=== PATIENT | female | born 1980 | race Caucasian/White ===

== ENCOUNTER 2019-04-22 11:22 | Emergency (ER) | payer OTHER, SELFPAY ==
[2019-04-22 11:23] VITALS: BP 116/70; PULSE 72; RESP 16; TEMP 36.2; O2SAT 100
--- NOTE | 2019-04-22 11:25 | ED.GENADULT ---
HPI - General Adult General Chief complaint: Skin/Abscess/Foreign Body Stated complaint: RASH Time Seen by Provider: 04/22/19 11:25 Source: patient Mode of arrival: ambulatory Limitations: no limitations History of Present Illness HPI narrative: 38-year-old female patient presents to the [facility] with complaints of a rash to the right upper arm for the past week. Patient states it is a burning pain. Denies any itching. Denies current coming into contact with anything that she is allergic to. Patient states that the pain does shoot down the arm at times. Patient denies any injury to the arm that she is aware of. Patient denies any fevers, sore throat, coughing, chest pain, shortness of breath, abdominal pain, nausea, vomiting or diarrhea. Patient denies or breast-feeding at this time. Related Data Allergies Allergy/AdvReac Type Severity Reaction Status Date / Time oxycodone Allergy Mild NAUSEA Verified 07/19/16 12:28 Review of Systems Review of Systems: Narrative: CONSTITUTIONAL: Denies fever, chills, or sweats. EYES: Denies visual changes, redness, or discharge. ENT: Denies rhinorrhea, congestion, sore throat, or otalgia. CARDIOVASCULAR: Denies chest pain, palpitations, or edema. RESPIRATORY: Denies cough or dyspnea. GASTROINTESTINAL: Denies abdominal pain, nausea, vomiting, or diarrhea. GENITOURINARY: Denies dysuria or hematuria. SKIN: Positive rash with burning pain to right upper arm MUSCULOSKELETAL: Denies back pain, joint pain, or myalgia. NEUROLOGIC: Denies headache, numbness, or weakness. PSYCHIATRIC: Denies anxiety or depression. [facility] Past Medical History Medical History (Updated 04/22/19 @ 11:43 by BEKAH Quick) Anemia Heart murmur HIV (human immunodeficiency virus infection) 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 First Family History Family History (Updated 04/22/19 @ 11:28 by BEKAH Quick) Grandparent Acute myocardial infarction Heart disease Diabetes mellitus Hypertension Comments At the time of my signature I agree with nursing past medical history, surgical, social, and family history. There is no relevant family history pertinent to the presenting complaint. Exam Narrative: Exam Narrative: GENERAL: Well-appearing, well-nourished, and in no acute distress. HEAD: Normocephalic, atraumatic. EYES: PERRLA and EOMI. ENT: Nares clear, no rhinorrhea or epistaxis. Mucous membranes moist. NECK: Supple. No lymphadenopathy CHEST: Clear to auscultation. No respiratory distress. HEART: Regular rate and rhythm. No murmur heard. Normal peripheral pulses. ABDOMEN: Soft, nontender, nondistended, normal active bowel sounds. EXTREMITIES: Normal range of motion. No edema. SKIN: Patient does have a clustered rash noted to the right upper extremity near the axilla. There is no open wounds drainage or obvious blisters. It does appear to be healing. NEURO: No focal deficits. Alert and oriented x3. Course Vital Signs Vital signs: Vital Signs Temperature 36.2 C L 04/22/19 11:23 Pulse Rate 72 04/22/19 11:23 Respiratory Rate 16 04/22/19 11:23 Blood Pressure 116/70 04/22/19 11:23 Pulse Oximetry 100 04/22/19 11:23 Temperature 36.2 C L 04/22/19 11:23 Pulse Rate 72 04/22/19 11:23 Respiratory Rate 16 04/22/19 11:23 Blood Pressure 116/70 04/22/19 11:23 Pulse Oximetry 100 04/22/19 11:23 Vital signs reviewed. Medical Decision Making Differential Diagnosis Differential Diagnosis: Differential diagnosis: Contact dermatitis, poison alla, poison sumac, psoriasis, eczema, allergic reaction, drug reaction, scabies, tinea syphilis, lung disease, viral exanthema, pityriasis, erythema multiforme. Discussed with patient this is most likely shingles. Discussed with patient that since she is a week out I do not see any need for antivirals because it does appear to be healing and should not take much longer to completely go away.
--- NOTE | 2021-02-28 10:43 | WPDAMENDMENT ---
Record Amendment Report Amendment Patient medical history was automatically put in by system. However, patient does not have history of HIV The above addendum was made to the patient's record by Karyn Gil APN on 02/25/21 at 0842. Original addendum is on the Express Care Visit Note on account [id number].
== END 2019-04-22 11:49 | disposition home or self-care (01) ==
PROVIDERS: Emergency Provider Nurse Practitioner Family; PCP Internal Medicine
DX: B02.9 Zoster without complications (principal); R01.1 Cardiac murmur, unspecified; Z21 Asymptomatic human immunodeficiency virus [HIV] infection status
CPT/HCPCS: 99213; G0463

== ENCOUNTER 2020-05-20 00:18 | Inpatient (IN) | payer OTHER, SELFPAY ==
[2020-05-20] VITALS (135 sets, daily range): BP systolic 70–166; BP diastolic 39–138; PULSE 51–265; TEMP 36.1–37.4; O2SAT 93–100; BMI 26.2
--- NOTE | 2020-05-20 00:18 | LDADM ---
This patient, Lula Roldan, was admitted to Labor/Delivery/Recovery 107 on 05/20/20 at 00:18. Plans for labor, pain management and were discussed with patient. Patient/family oriented to hospital policies and general routines including ID bracelet, bed and alarms, visiting hours, pain management, procedures, bathroom and other care routines, personal items, smoking policy, room service/diet and guest tray routines, infant security routines, and visiting hours. Patient/Family are encouraged to report perceived risks to care and to ask questions if they do not understand what they are told or what they should do. See OBIX for further documentation.
[2020-05-20 00:55] LABS: Basophils Percent Auto 0.4 % (0.2-1.2); Eosinophils Percent Auto 0.4 % (0-4.4); Hematocrit 39.8 % (37.0-47.0); Hemoglobin 12.8 g/dL (12.0-15.0); Immature Granulocyte Absolute 0.03 K/mm3 (0.00-0.031); Immature Granulocyte Percent A 0.4 % (0-0.5); Lymphocytes Absolute Auto 1.51 K/mm3 (0.9-3.2); Lymphocytes Percent Auto 20.3 % (18.3-44.2); Mean Corpuscular HGB Conc 32.2 g/dl (32-36); Mean Corpuscular Hemoglobin 28.1 pg (26-34); Mean Corpuscular Volume 87.3 fl (80-100); Mean Platelet Volume 10.1 fl (7.4-10.4); Monocytes Absolute Auto 0.7 K/mm3 (0.1-0.6); Monocytes Percent Auto 9.3 % (2.6-8.5); Neutrophils Absolute Auto 5.2 K/mm3 (1.3-6.7); Neutrophils Percent Auto 69.2 % (45.5-73.1); Platelet Count Result 172 k/mm3 (150-375); Red Blood Count 4.56 M/mm3 (4.2-5.4); White Blood Count 7.4 K/mm3 (4.5-10.0)
[2020-05-20 01:21] LABS: Large Platelets Present; Platelet Estimate Adequate (Adequate)
[2020-05-20] MEDS: miSOPROStol 25 MCG TABLET VAGINAL ×2 (01:38→05:50)
--- NOTE | 2020-05-20 07:31 | PM.IMHP ---
H&P: HPI History of Present Illness Date/Time: 05/20/20 07:31 39 yo who presents at 39w0d for elective IOL. She denies any regular contractions, leakage of fluid, or vaginal bleeding. She endorses good movement. Her was complicated by iron deficiency anemia requiring IV iron transfusions. Pt has been asymptomatic. Chief Complaint: intrauterine at term Review of Systems Cardiovascular: Cardiovascular: Denies chest pain, Denies leg edema, Denies palpitations, Denies dyspnea and Denies dyspnea on exertion Respiratory: Respiratory: Denies cough, Denies dyspnea and Denies dyspnea on exertion Gastrointestinal: Gastrointestinal: Denies abdominal pain, Denies constipation, Denies diarrhea, Denies nausea and Denies vomiting Genitourinary: Genitourinary: Denies hematuria, Denies urinary frequency, Denies dysuria, Denies pelvic pain, Denies urinary incontinence and Denies vaginal discharge Neurologic: Reports system reviewed and no additional complaints, except as documented Psychiatric: Psychiatric: Reports no additional psychiatric complaints Endocrine: Endocrine: Denies palpitations PMFSH Past Medical History Medical History (Updated 05/20/20 @ 07:34 by Rajendra Alvarez MD) Anemia Heart murmur HIV (human immunodeficiency virus infection) 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 First Family History Family History Grandparent Acute myocardial infarction Heart disease Diabetes mellitus Hypertension Social History Social History Smoking status: Never smoker Substance use: never Gender identity (if verbalized by the patient): Female Spiritual care concerns: No Meds Home Medications and Allergies Home Medications Medication Instructions Recorded Confirmed Type ondansetron HCl [Zofran] 4 mg PO Q6H PRN 03/23/20 05/16/20 History PNV no.[id number] acid 1 tablet PO DAILY 05/16/20 05/20/20 History [Complete ] Allergies Allergy/AdvReac Type Severity Reaction Status Date / Time oxycodone Allergy Mild NAUSEA Verified 05/05/20 14:03 Vital Signs Vital Signs - 24 hr 05/20/20 00:57 05/20/20 01:13 05/20/20 01:15 Temperature 36.4 C L Pulse Rate 71 70 Blood Pressure 125/82 122/81 05/20/20 01:30 05/20/20 01:45 05/20/20 02:00 Temperature Pulse Rate 63 61 91 Blood Pressure 121/77 125/79 122/85 05/20/20 02:15 05/20/20 02:30 05/20/20 02:45 Temperature Pulse Rate 62 62 68 Blood Pressure 120/64 109/54 L 121/74 05/20/20 03:00 05/20/20 03:15 05/20/20 03:30 Temperature Pulse Rate 64 72 66 Blood Pressure 122/68 114/82 114/68 05/20/20 03:45 05/20/20 03:49 05/20/20 04:00 Temperature 36.4 C Pulse Rate 62 61 Blood Pressure 108/68 118/70 05/20/20 04:15 05/20/20 04:30 05/20/20 04:45 Temperature Pulse Rate 64 71 64 Blood Pressure 121/71 116/67 105/55 L 05/20/20 05:00 05/20/20 05:15 05/20/20 05:31 Temperature Pulse Rate 58 L 62 71 Blood Pressure 108/63 110/55 L 97/46 L 05/20/20 05:45 05/20/20 05:51 05/20/20 06:00 Temperature 36.4 C Pulse Rate 65 69 Blood Pressure 101/58 L 115/73 05/20/20 06:15 05/20/20 06:30 05/20/20 06:45 Temperature Pulse Rate 63 88 76 Blood Pressure 118/72 107/93 H 96/61 L 05/20/20 07:00 05/20/20 07:15 05/20/20 07:30 Temperature Pulse Rate 66 51 L 67 Blood Pressure 108/59 L 111/53 L 115/61 Exam Const: General: no acute distress Eyes: EOM: EOMs intact bilaterally Neck: Neck: supple Thyroid: thyroid normal Chest: Breast/axilla inspection: normal inspection of the breasts Breast/axilla palpation: normal palpation of the breasts, normal palpation of the axillae and no axillary lymphadenopathy Resp: Effort & Inspection: normal respiratory effort Auscultation: clear to auscultation bilaterally Cardio:
[2020-05-20 08:39] LABS: Rapid Plasma Reagin Non-Reactive (NonReactive)
[2020-05-20] MEDS: LACTATED RINGERS 1,000 ML 125 ML IV CONT ×4 (13:11→19:38)
[2020-05-20] MEDS: OXYTOCIN 30 UNITS/NS 500 ML 30 UNITS/500 ML BAG IV CONT (15:28)
[2020-05-20] MEDS: ONDANSETRON INJ 4 MG/2 ML VIAL IV PUSH (18:06)
--- NOTE | 2020-05-20 22:21 | P.PCNOB_ITS ---
OB - Delivery Note Procedure Delivery date: 05/20/20 Procedure: Patient pushed on and off for over 2 hrs. Fetus was noted to be OA at +1 station. Pt was able to push fetus to +2. Pt had noted that she felt too tired. Pt was tearful and started having ineffective pushing. At this time, I di scussed the possibly of a forceps assisted delivery due to maternal exhaustion. Risks, benefits and alternatives were discussed. Pt consented to proceed with a FAVD. Patient positioned in stirrups with the bed broken, dorsal lithotomy. Her perineum was prepped and draped in the usual fashion. The perineal body was normal length. Pelvis felt to be adequate. + 2 station. Min/mod caput. Sagital suture palpated and found to be direct A-P plane with possibly 5 degrees rightward axis. Phantom application of blades performed prior to placing left hand into vaginal sidewall. Left blade gently inserted along fluid jet cutter operator's hand to ensure no vag lacerations - advanced along the skull with the axillary prominence in a gentle fashion. In a similar fashion, the right blade was gently placed. Blade placement was then double checked to ensure adequate placement. The forceps shank articulated well in the midline. A fingerbreadth below the suture on either side was noted. With the next contraction, gentle downward pressure was applied in sync with the contraction / pushing effort. Adequate descent was noted. There were a total of 2 pulls, and the forceps were disarticulated as the head delivered. A nuchal cord x 1 was noted and easily reduced. The remainder of the was delivered atraumatically. A segment of cord taken for gases and sample collected as above. The placenta delivered spontaneously and found to be intact. The perineum was inspected and there were no lacerations. All sponge, lap, and needle counts correct x 2. Patient taken out of lithotomy position and tolerated procedure very well. NICU present for delivery. Intrapartal events: Ineffective Pushing Induction method: per misoprostol protocol Delivery augmentation: rupture of membranes and pitocin Delivery monitor: external FHT and internal uterine Route of delivery: forceps Indication for instrumentation: maternal exhaustion Episiotomy description: None Laceration Description: None Specimen: Yes (placenta) Quantitative Blood Loss (ml): 250 Anesthesia type: Epidural Disposition: PACU [place] Date of : 05/20/20 Time of : 22:08 Weeks of gestation at delivery: 39 gender: Male Weight (pounds): 6 Weight (ounces): 7 presentation: vertex position: Right Occiput Anterior Placenta delivery description: Spontaneous cord vessel description: 3 Vessels and Nuchal Cord score one minute: 8 score five minutes: 9
[2020-05-20] MEDS: OXYTOCIN 30 UNITS/NS 500 ML 30 UNITS/500 ML BAG 125 UNITS IV CONT (22:40)
[2020-05-20] MEDS: IBUPROFEN 600 MG TABLET PO (22:40)
[2020-05-21 00:30] VITALS: BP 112/69; PULSE 72; RESP 18; TEMP 37.2; O2SAT 97
[2020-05-21] MEDS: ACETAMINOPHEN 325 MG TABLET 650 MG PO ×2 (01:13→16:21)
[2020-05-21 04:51] VITALS: BP 115/69; PULSE 75; RESP 14; TEMP 36.1; O2SAT 97
[2020-05-21 05:00] LABS: Hematocrit 34.4 % (37.0-47.0)
[2020-05-21 08:20] VITALS: RESP 15; TEMP 36.4
--- NOTE | 2020-05-21 09:03 | PM.OBPNVD ---
OB - PN: Subj Subjective Date/time seen: 05/21/20 09:03 Patient comments: no complaints, pain well controlled and tolerating diet [place] feeding status: exclusively breast feeding Narrative: patient doing well this AM. No complaints. Pain is well controlled. She reports minimal bleeding. She is ambulating and voiding without difficulty. She is tolerating PO. She denies N/V, fever, chills. OB - PN: Obj Data Labs CBC & Chem 7: 05/21/20 04:42 Labs: Laboratory Results - last 24 hr 05/21/20 04:42 Hgb 11.0 L Hct 34.4 L OB - PN A/P Plan day: 1 Plan: routine care Comments: patient doing well H/H stable plan for infant circumcision tomorrow continue routine care Time Spent With Patient Time: Total time spent is greater than 50% in coordination of care (as documented) at patient's floor/unit and/or counseling patient: Time with patient: less than 15 minutes Review of Systems Review of Systems: All systems reviewed & are unremarkable except as noted in HPI and below Exam Const: General: comfortable and no acute distress Resp: Effort & Inspection: normal respiratory effort Cardio: Rate: regular rate GI: GI Palp: Yes Soft to palpation and No Tenderness to palpation present (GI) Auscultation: normal bowel sounds Other: fundus firm and below umbilicus. Psych: Affect: normal affect
[2020-05-21] MEDS: MULTIVIT/MIN/PREN/FOL AC/IRON TABLET 1 TAB PO (09:45)
[2020-05-21] MEDS: IBUPROFEN 600 MG TABLET PO ×2 (09:45→19:19)
[2020-05-21 12:17] VITALS: RESP 16; TEMP 36.5
[2020-05-21 16:13] VITALS: RESP 15; TEMP 36.6
[2020-05-21 19:20] VITALS: BP 112/55; PULSE 76; RESP 18; TEMP 36.9; O2SAT 100
--- NOTE | 2020-05-22 07:04 | PM.OBDSVD ---
DS: Admitting Diagnosis Admitting Diagnosis Admitting Diagnosis: induction of labor of intrauterine at term OB - DS: Summary OB Procedures : None OB Procedures Intrapartum: Spontaneous Vag Delivery OB Procedures: : None Status at Discharge Functional status at discharge: independent ambulation Overall status at discharge: patient is back to baseline Time Spent with Patient Time attestation: Total time spent providing and/or coordinating discharge services: Time spent: Less than 30 minutes Exam Const: General: comfortable and no acute distress Resp: Effort & Inspection: normal respiratory effort Auscultation: clear to auscultation bilaterally Cardio: Rate: regular rate GI: GI Palp: Yes Soft to palpation Auscultation: normal bowel sounds Other: Fundus firm below umbilicus Psych: Appearance: grossly normal Mental Status: mental status grossly normal Affect: normal affect DS: Data Data Completed and Pending Pending studies at discharge: Pending at discharge 05/20/20 22:12 Surgical [PTH] Routine Discharge Plan Discharge Consulting providers: Stefano Miranda Discharging Clinician: Rajendra Alvarez Patient Disposition: Home, Self-Care Activity: as tolerated and pelvic rest Diet: regular Patient Instructions: Antibiotic Form, Vaginal Delivery (DC) Stand Alone Forms: General Discharge Information Follow-up/Referrals: Rajendra Alvarez MD [Physician] - 4 Weeks Discharge Medications: New acetaminophen [Mapap (acetaminophen)] 325 mg Tablet 650 mg PO Q6H PRN (Reason: Mild Pain (1-3) Or Headache) Qty: 30 RF: 0 ibuprofen 600 mg Tablet 600 mg PO Q6H PRN (Reason: Cramping) Qty: 30 RF: 0 Continued ondansetron HCl [Zofran] 4 mg Tablet 4 mg PO Q6H PRN (Reason: Nausea) RF: 0 Complete 30-975 mg-mcg Tablet 1 tablet PO DAILY RF: 0 Date of admission: 05/20/20 00:18 Primary Care Provider: PHYSICIAN,TRANSPORTATION SUPERVISOR Admitting Provider: Rajendra Alvarez Attending physician on admission: Rajendra Alvarez Condition: Stable
[2020-05-22 07:30] VITALS: PULSE 67; RESP 18; O2SAT 98
[2020-05-22 07:59] VITALS: BP 107/64; PULSE 67; RESP 18; TEMP 36.8; O2SAT 98
[2020-05-22] MEDS: ACETAMINOPHEN 325 MG TABLET 650 MG PO (09:15)
[2020-05-22 12:00] VITALS: BP 102/58; PULSE 60; RESP 18; TEMP 36.7; O2SAT 97
--- NOTE | 2020-05-22 12:27 | PC.NURSE ---
Patient viewed the discharge video Mother & Baby Care, The First Two Weeks . Patient was given the opportunity and encouraged to ask questions. Patient verbalized understanding of information shared and has been given the mother/baby guide for home reference.
[2020-05-24 10:55] VITALS: BP 121/68; PULSE 77; RESP 16; TEMP 36.8; O2SAT 99
== END 2020-05-22 13:05 | disposition home or self-care (01) | DRG 560 ==
LOC: ANHLDR 00:25 → ANHOBPP 05-21 00:25 → ANHOB2 05-21 17:01
PROVIDERS: Admitting Provider Student in an Organized Health Care Education/Training Program; Visit Provider Student in an Organized Health Care Education/Training Program
DX: O99.02 Anemia complicating childbirth (principal); Z37.0 Single live birth; Z3A.39 39 weeks gestation of pregnancy; O36.8330 Maternal care for abnormalities of the fetal heart rate or rhythm, third trimester, not applicable or unspecified; O69.81X0 Labor and delivery complicated by cord around neck, without compression, not applicable or unspecified; O77.0 Labor and delivery complicated by meconium in amniotic fluid; D50.9 Iron deficiency anemia, unspecified; O75.81 Maternal exhaustion complicating labor and delivery
CPT/HCPCS: 36415; 85014; 85018; 85025; 86592; 86850; 86900; 86901; 88307; A9270; J2405; J2590; J2795; J7120

== ENCOUNTER 2020-12-30 10:01 | Emergency (ER) | payer OTHER, SELFPAY ==
[2020-12-30 10:14] VITALS: BP 134/74; PULSE 69; RESP 16; TEMP 36.5; O2SAT 100
--- NOTE | 2020-12-30 10:17 | ED.URI ---
HPI - URI/Sore Throat General Chief Complaint: Upper Respiratory Infection Stated Complaint: Sore Throat Time Seen by Provider: 12/30/20 10:20 Source: patient and RN notes reviewed Mode of arrival: ambulatory Limitations: no limitations History of Present Illness HPI Narrative: 40-year-old female presents concern for 5-day history of sore throat, painful swallowing, hoarse voice, pressure behind both ears. Reports she has been vaccinated for Covid. She denies body aches, chills, fever, sweats, nasal congestion or rhinorrhea. Reports occasional dry cough. Denies nausea, vomiting, diarrhea. Reports she has been using Tylenol, ibuprofen, throat drops with little relief. Denies any known sick contacts. MD elicited complaint: sore throat Related Data Home Medications Medication Instructions Recorded Confirmed norgestimate-ethinyl estradiol 1 tablet PO DAILY 12/30/20 12/30/20 [Tri-Sprintec (28)] Allergies Allergy/AdvReac Type Severity Reaction Status Date / Time No Known Allergies Allergy Verified 12/30/20 10:18 Review of Systems Review of Systems: CONSTITUTIONAL: Denies malaise, chills, sweats, or fever. EYES: Denies visual changes, redness, or discharge. ENT: Denies rhinorrhea, congestion, sinus pain, otalgia. Reports sore throat, pressure behind both ears. CARDIOVASCULAR: Denies chest pain, palpitations, or edema. RESPIRATORY: Reports occasional dry cough. Denies dyspnea. GASTROINTESTINAL: Denies abdominal pain, nausea, vomiting, diarrhea SKIN: Denies rash or itching. MUSCULOSKELETAL: Denies myalgia. NEUROLOGIC: Denies headache. All systems reviewed & are unremarkable except as noted in HPI and below PMFSH Past Medical History Medical History (Updated 12/30/20 @ 10:32 by Nicol Israel NP) Anemia Heart murmur HIV (human immunodeficiency virus infection) 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 First Family History Family History Grandparent Acute myocardial infarction Heart disease Diabetes mellitus Hypertension Social History Social History Smoking status: Never smoker Substance use: never Gender identity (if verbalized by the patient): Female Spiritual care concerns: No Comments At time of signature, agree with nursing past medical, surgical, social and family history. There is no relevant family history pertinent to the presenting complaint Exam Narrative: GENERAL: Well-appearing, well-nourished, and in no acute distress. HEAD: Normocephalic EYES: PERRLA, conjunctivae clear ENT: Nares clear. Mucous membranes moist. TM pearly ovalle with dull light reflex bilaterally; no tragal tenderness. Oropharynx mildly erythematous without lesions. Tonsils not enlarged and without exudate, no drooling, no hoarseness, no trismus, uvula midline. NECK: Supple. No lymphadenopathy CHEST: Clear to auscultation, breath sounds equal. No wheezing, rhonchi, rales, or stridor. No respiratory distress, speaks in full sentences. HEART: Regular rate and rhythm. No murmur heard. SKIN: Warm, dry, no rash. NEURO: Alert and oriented x3. PSYCH: Normal mood and affect Course Course Emergency Course: Patient is aware of diagnosis, understands and agrees to treatment plan. Anticipatory guidance given. Patient agrees to follow-up as directed and is aware of reasons to seek care at the emergency department. Portions of this record may have been created with voice recognition software Vital Signs Vital signs: Vital Signs Temperature 97.7 F 12/30/20 10:14 Pulse Rate 69 12/30/20 10:14 Respiratory Rate 16 12/30/20 10:14 Blood Pressure 134/74 12/30/20 10:14 Pulse Oximetry 100 12/30/20 10:14 Temperature 97.7 F 12/30/20 10:14 Pulse Rate 69 12/30/20 10:14 Respiratory Rate 16 12/30/20 10:14 Blood Pressure 134/74 12/30/20 10:14 Pulse Oximetry 1
== END 2020-12-30 10:36 | disposition home or self-care (01) ==
PROVIDERS: Emergency Provider Nurse Practitioner
DX: J02.9 Acute pharyngitis, unspecified (principal); D64.9 Anemia, unspecified; R01.1 Cardiac murmur, unspecified; Z21 Asymptomatic human immunodeficiency virus [HIV] infection status
CPT/HCPCS: 87081; 87880; 99213; G0463

== ENCOUNTER 2021-02-09 10:12 | Outpatient (CLI) | payer OTHER, SELFPAY | END 2021-02-09 10:13 | disposition home or self-care (01) | PROVIDERS: Visit Provider Student in an Organized Health Care Education/Training Program | DX: D64.9 Anemia, unspecified (principal); Z01.818 Encounter for other preprocedural examination | CPT/HCPCS: 36415; 86850; 86900; 86901 ==

== ENCOUNTER 2021-03-16 00:53 | Day surgery (SDC) | payer SELFPAY ==
--- NOTE | 2021-02-06 15:05 | SUR.PREOP ---
Report to the Outpatient Waiting Room, entrance under the green pavilion located off [facility], at time __1000 on date __02/16/21 . OR Time: ___1200 . - You and your visitor will be asked a series of questions to screen for COVID 19 for your protection. - A mask is required within the hospital. - Only one visitor is allowed at this time. Patient visitors will be guided where to wait when not with patient. Preoperative COVID Testing Requirements: No COVID Test needed if: (proof is required; if not received patient will have Rapid Test prior to entry) - Patient has received COVID Vaccine at least 14 days prior to procedure date or - Patient has positive COVID test result within last 90 days of surgery date. COVID Test needed if above criteria is not met If not COVID vaccinated a COVID test must be conducted within 72 hours of surgery and patient is asked to isolate self from time of testing until procedure. You will go to the [facility] for your COVID testing. The [facility] [employer] [facility] Testing site is located at the corner of [address] [facility]. You will only be called if COVID results are positive and your surgeon may reschedule your elective surgery date. Patients may have clear liquids (water, carbonated beverages, clear teas, apple juice) until 3 hours prior to surgery with a maximum of 20 ounces. - No food from midnight until time of surgery - Infants may have breast milk until 4 hours before surgery, infant formula 6 hours prior to surgery. - Children will be allowed to drink immediately following surgery. If applicable, please bring a bottle or sippy cup to assist with drinking. Juice, water, soda, and popsicles are readily available. For infants on formula, please bring formula the day of surgery. Pacifiers are allowed. Take the following medications with a SIP of water the morning of surgery: NONE Medications to discontinue per physician NONE Date to take last dose Please no make-up, nail portuguese, hairspray, perfume, deodorant, or body powder the day of surgery. No jewelry (including any body piercings) or valuables the day of surgery, leave them at home. Please take a shower or bath the night before, or the morning of, surgery with an antibacterial soap. Wear comfortable, loose fitting clothing. Children are encouraged to wear pajamas. - Jewelry must be removed prior to entering the operating room. Rings and piercings that are not removed may be cut off. - The hospital will not accept responsibility for valuables. - Please leave all valuables, including medications, at home the day of surgery. If you are going home after surgery, a licensed limo driver must drive you home. - NO public transportation without another adult. - We recommend that an adult stay with you for 24 hours following discharge. - We also recommend that you do not drive, make important decision, drink alcoholic beverages, or take any drugs that were not prescribed by your health care provider for at least 24 hours after your discharge time. For Pediatric surgeries, we recommend two adults accompany the child home (only one inside the building at this time). Follow any additional instructions given to you from your surgeon. Telephone instructions given to PATIENT and asked if any additional questions and then verbalized understanding. Patient advised to call surgeon office or pre surgery nurse liaison [phone] if any additional questions.
[2021-02-06 15:19] VITALS: BMI 26.6
--- NOTE | 2021-03-09 08:49 | PC.NURSE ---
Pt states no changes in medications since initial interview. Health history updated to include + Covid - symptoms now resolved. New instructions reviewed with pt. Pt denies further questions at this time.
[2021-03-16] VITALS (10 sets, daily range): BP systolic 99–134; BP diastolic 56–72; PULSE 59–92; RESP 8–18; TEMP 36.2–37.1; O2SAT 98–100
--- NOTE | 2021-03-16 07:59 | P.PNAN_ITS ---
Anes - Initial Pre Proc Eval Procedure: Operation Date: 03/16/21 09:00 Proposed Procedures p Robotic Assisted Total Vaginal Hysterectomy, Right Salpingectomy - Rajendra Alvarez MD Date/Time: 03/16/21 07:59 Surgeon: Rajendra Alvarez MD Pre Op Diagnosis: desires sterlization Patient Data Age: 40 Gender: F Height: 1.57 m Weight: 66 kg Allergies Allergy/AdvReac Type Severity Reaction Status Date / Time No Known Allergies Allergy Verified 03/09/21 08:48 Home Medications Medication Instructions Recorded Confirmed Type norgestimate-ethinyl estradiol 1 tablet PO DAILY 12/30/20 03/09/21 History [Tri-Sprintec (28)] Patient hx anesthesia problems: other (motion sickness) Family hx anesthesia problems: none Results Review: All pre-operative results and documents have been reviewed as part of the pre-operative evaluation. 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 First Family History Family History Grandparent Acute myocardial infarction Heart disease Diabetes mellitus Hypertension Social History Social History Smoking status: Never smoker Second hand tobacco smoke exposure: No Alcohol intake: current Drinks per week: 1 Substance use: never Substance use type: does not use Living arrangements: with family Gender identity (if verbalized by the patient): Female Spiritual care concerns: No Anes - Eval Final PreProcedure Day of Procedure 03/16/21 07:59 Patient weight: overweight Heart: regular rate and rhythm Lungs: clear to auscultation Airway: Mallampati scale class 1 Neurological: alert and oriented Last oral intake: >/= 8 hours ASA classification: II Emergent: no Anesthetic plan: proceed Anesthesia type and monitoring: general ETT and standard monitoring Results Review: All pre-operative results and documents have been reviewed as part of the pre-operative evaluation. Informed Consent: The patient's anesthetic plan and its attendant risks and benefits were discussed with the patient/family/POA. Questions were solicited and answers provided to the satisfaction of the patient/family/POA.
[2021-03-16] MEDS: ACETAMINOPHEN 500 MG TABLET 1000 MG PO (08:30)
[2021-03-16] MEDS: LACTATED RINGERS 1,000 ML 30 ML IV CONT ×2 (08:35→11:04)
[2021-03-16] MEDS: KETOROLAC 15 MG/ML VIAL (*BKC) IV PUSH (08:41)
[2021-03-16] MEDS: SCOPOLAMINE 1.5 MG PATCH TRANSDERM (08:41)
--- NOTE | 2021-03-16 09:03 | PM.IMHP ---
H&P: HPI History of Present Illness Date/Time: 03/16/21 09:03 Chief Complaint: abnormal uterine bleeding uterine fibroids dysmenorrhea Narrative: 40 yo female who presents for robotic assisted hysterectomy due to AUB secondary to uterine fibroids and dysmenorrhea. Pt has a history of an ectopic and already had a salpingectomy. Pt declined medical management and desires surgical management. Review of Systems Cardiovascular: Cardiovascular: Denies chest pain, Denies leg edema, Denies palpitations, Denies dyspnea and Denies dyspnea on exertion Respiratory: Respiratory: Denies cough, Denies dyspnea and Denies dyspnea on exertion Gastrointestinal: Gastrointestinal: Denies abdominal pain, Denies constipation, Denies diarrhea, Denies nausea and Denies vomiting Genitourinary: Genitourinary: Denies hematuria, Denies urinary frequency, Denies dysuria, Denies pelvic pain, Denies urinary incontinence and Denies vaginal discharge Neurologic: Reports system reviewed and no additional complaints, except as documented Psychiatric: Psychiatric: Reports no additional psychiatric complaints Endocrine: Endocrine: Denies palpitations PMFSH Past Medical History Medical History Anemia Heart murmur 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 First Family History Family History Grandparent Acute myocardial infarction Heart disease Diabetes mellitus Hypertension Social History Social History Smoking status: Never smoker Second hand tobacco smoke exposure: No Alcohol intake: current Drinks per week: 1 Substance use: never Substance use type: does not use Living arrangements: with family Gender identity (if verbalized by the patient): Female Spiritual care concerns: No Meds Home Medications and Allergies Home Medications Medication Instructions Recorded Confirmed Type norgestimate-ethinyl estradiol 1 tablet PO DAILY 12/30/20 03/16/21 History [Tri-Sprintec (28)] Allergies Allergy/AdvReac Type Severity Reaction Status Date / Time No Known Allergies Allergy Verified 03/16/21 08:49 Vital Signs Vital Signs - 24 hr 03/16/21 08:52 Temperature 36.8 C Pulse Rate 75 Respiratory Rate 18 Blood Pressure 124/70 Pulse Oximetry 100 Exam Const: General: no acute distress Eyes: EOM: EOMs intact bilaterally Neck: Neck: supple Thyroid: thyroid normal Chest: Breast/axilla inspection: normal inspection of the breasts Breast/axilla palpation: normal palpation of the breasts, normal palpation of the axillae and no axillary lymphadenopathy Resp: Effort & Inspection: normal respiratory effort Auscultation: clear to auscultation bilaterally Cardio: Rate: regular rate Rhythm: regular rhythm GI: Inspection: non-distended GI Palp: Yes Soft to palpation, No Tenderness to palpation present (GI) and No Guarding due to palpation present (GI) Auscultation: normal bowel sounds : General: No bladder normal to palpation External Female Exam: normal external appearance Speculum Exam - Vagina: normal vaginal discharge and No vaginal bleeding Speculum Exam - Cervix: nontender Bimanual exam- vagina & uterus: No bladder normal to palpation and No Cervical tenderness present OB/external & speculum: No vaginal bleeding Skin: General skin exam: normal color and no rashes or lesions noted Neuro: Cognition (Neuro): normal cognition Speech: normal speech Extrem: General: normal to inspection and no edema Psych: Mental Status: mental status grossly normal Affect: normal affect Assessment and Plan Assessment and plan (1) Abnormal uterine bleeding (AUB): Code(s): N93.9 - Abnormal uterine and vaginal bleeding, unspecified Status: Acute (2) Uterine fibroid: Code(s): D25.9 - Leiomy
--- NOTE | 2021-03-16 09:06 | WPDHPUPDATE1 ---
History and Physical Update Update Date/Time: 03/16/21 09:06 History and Physical has been reviewed, including an updated exam of the patient. There are NO changes in the patient's condition. Risks, benefits, and alternatives have been discussed and questions answered. Patient agrees to proceed with procedure.
[2021-03-16] MEDS: ceFAZolin 2 GM/D5W 50 ML 2 GM/50 ML BAG IVPB (09:13)
[2021-03-16] MEDS: LIDO 1%/EPINEPHRINE 1:100,000 50 ML VIAL 30 ML INFILTRATE (09:44)
--- NOTE | 2021-03-16 10:46 | W.PM.PROC2 ---
Procedure Note - Detailed Date of Procedure 03/16/21 Pre-op Diagnosis desires sterlization Post-op Diagnosis same Procedure Performed robotic assisted total laparoscopic hysterectomy and rightl salpingectomy Surgeon Rajendra Alvarez MD Anesthesia general Description of Procedure After the patient was appropriately consented she was taken to the operating room where she was transferred to the table in a dorsal supine position. General anesthesia was then induced with endotracheal intubation. The patient was transferred to a dorsal lithotomy position using adjustable yellow-fin stirrups. Her position was adjusted for appropriate support of her lower back and lower extremities. The patient was prepped and draped. A transurethral sharif catheter was place. The cervix was sequentially dilated and a JARVIS uterine manipulator placed in typical fashion about a 3 cm TY ring. Gloves were changed. After confirmation of a functioning orogastric tube, lidocaine was injected at Fink's point in the LUQ and a 8 mm incision was made. A 8 mm Optiview trocar was then inserted into the abdominal cavity under direct visualization and done so without complication. The abdomen was then insufflated with approximately 2-3L of CO2 establishing a pneumoperitoneum and the patient was placed in Trendelenburg position. Just above the umbilicus in the midline, a 10mm incision made after injection of lidocaine and a 8 mm bladeless trocar advanced into the abdominal cavity under direct visualization without incident. We subsequently placed two robotic ports in a similar fashion, one in the left mid-quadrant and one in the right, 10cm lateral to the midline port. The robot was then docked. Attention was turned to the left pelvis. The right fallopian tube was removed by sequentially dividing the mesosalpinx towards the uterus sparing the ovary. The utero-ovarian ligament was desiccated and transected, as was the round ligament. The posterior peritoneal leaf was taken down to the TY ring. The anterior leaf was developed as well as the start of the bladder flap. The right uterine artery was then skeletonized and desiccated and transected just above the level of the TY ring. Attention was turned to the left pelvis. The left fallopian tube was previously surgically removed. The utero-ovarian ligament was desiccated and transected, as was the round ligament. The posterior peritoneal leaf was taken down to the TY ring. The anterior leaf was developed as well as the start of the bladder flap. The right uterine artery was then skeletonized and desiccated and transected just above the level of the TY ring. The bladder was then further dissected inferiorly over the level of the TY ring. A circumferential colpotomy was made using monopolar current. The uterus, cervix, bilateral tubes were then delivered transvaginally. I then placed a single figure of eight suture of 0-vicryl in the left corner of the vaginal cuff. I then re-approximated the colpotomy with a running #1 PDO barbed suture in 2 layers. Following this dissection, the abdomen and pelvis were copiously irrigated and all surgical sites found to be hemostatic. Skin sites were reapproximated with 4-0 Vicryl in a subcuticular fashion. Steri-Strips were placed. The patient tolerated the procedure well. Sponge, needle and instrument counts were correct x 2 and the patient was taken to recovery in stable condition. Ancef wase given for antimicrobial prophylaxis. The patient had SCD's on for VTE prophylaxis during the entire procedure. Estimated Blood Loss 150 Urine Output 100 Drains No Packing No Pathology yes (cervix, uterus, right fallopian tube) Complications No immediate complications Condition stable Disposition PACU
[2021-03-16] MEDS: fentaNYL CITRATE INJ (*CRX) 100 MCG/2 ML VIAL 25 MCG IV PUSH ×4 (11:29→12:20)
--- NOTE | 2021-03-16 12:25 | PC.NURSE ---
This patient, Lula Roldan, was received from PACU on 03/16/21 at 1225. Patient/family oriented to unit policies and routines
[2021-03-16] MEDS: LACTATED RINGERS 1,000 ML 125 ML IV CONT (12:49)
[2021-03-16] MEDS: KETOROLAC 30 MG/ML VIAL (*BKC) IV PUSH (12:49)
[2021-03-16] MEDS: HYDROcodone/acetaminophen (*CRX) 10-325 MG TABLET 1 TAB PO ×3 (14:56→22:17)
[2021-03-16] MEDS: IBUPROFEN 600 MG TABLET PO (19:25)
[2021-03-16] MEDS: SENNA/DOCUSATE SODIUM TABLET 2 TAB PO (22:17)
[2021-03-17] MEDS: HYDROcodone/acetaminophen (*CRX) 10-325 MG TABLET 1 TAB PO ×3 (01:46→10:06)
[2021-03-17] MEDS: IBUPROFEN 600 MG TABLET PO ×2 (01:47→10:07)
[2021-03-17 05:00] VITALS: BP 101/59; PULSE 65; RESP 16; TEMP 36.4
[2021-03-17 05:12] LABS: Basophils Percent Auto 0.1 % (0.2-1.2); Eosinophils Percent Auto 0.1 % (0-4.4); Hematocrit 35.7 % (37.0-47.0); Hemoglobin 12.1 g/dL (12.0-15.0); Immature Granulocyte Absolute 0.05 K/mm3 (0.00-0.031); Immature Granulocyte Percent A 0.4 % (0-0.5); Lymphocytes Absolute Auto 1.15 K/mm3 (0.9-3.2); Lymphocytes Percent Auto 9.7 % (18.3-44.2); Mean Corpuscular HGB Conc 33.9 g/dl (32-36); Mean Corpuscular Hemoglobin 30.1 pg (26-34); Mean Corpuscular Volume 88.8 fl (80-100); Mean Platelet Volume 10.3 fl (7.4-10.4); Monocytes Percent Auto 8.4 % (2.6-8.5); Neutrophils Absolute Auto 9.6 K/mm3 (1.3-6.7); Neutrophils Percent Auto 81.3 % (45.5-73.1); Platelet Count Result 287 k/mm3 (150-375); Red Blood Count 4.02 M/mm3 (4.2-5.4); Red Cell Distribution Width 11.4 % (11.5-14.5); White Blood Count 11.8 K/mm3 (4.5-10.0)
[2021-03-17 05:24] LABS: Anion Gap 6 mmol/L (8-16); Blood Urea Nitrogen 8 mg/dL (7-17); Calcium 8.8 mg/dL (8.4-10.2); Carbon Dioxide 25 mmol/L (22-30); Chloride 105 mmol/L (98-107); Estimated CRCL calculation 85 ml/min; Estimated Glomerular Filt Rate > 60; Glucose 104 mg/dL (65-110); Potassium 3.9 mmol/L (3.4-5.0); Sodium 136 mmol/L (137-145)
--- NOTE | 2021-03-17 08:09 | PM.GYNPNOP ---
ACCOUNTING MANAGER CPA - A/P Postoperative Procedures: Procedures Operation Date: 03/16/21 09:00 Actual Procedure Side Surgeon p Robotic Assisted Total Vaginal Hysterectomy, Right Salpingectomy Right Rajendra Alvarez MD Postoperative day: 1 Postoperative status: doing well Postoperative plan: routine post-op care and discharge Time Spent With Patient Time: Total time spent is greater than 50% in coordination of care (as documented) at patient's floor/unit and/or counseling patient: Time with patient: less than 15 minutes ACCOUNTING MANAGER CPA- PN:Subj Post-Op Subjective Date/time seen: 03/17/21 08:09 Subjective: patient has no complaints and patient desires discharge Review of Systems Review of Systems: All systems reviewed & are unremarkable except as noted in HPI and below Exam Const: General: no acute distress Eyes: General: appearance normal, both eyes and all related structures Neck: Neck: supple and no JVD Thyroid: thyroid normal Resp: Effort & Inspection: normal respiratory effort Auscultation: clear to auscultation bilaterally Cardio: Rate: regular rate Rhythm: regular rhythm GI: Inspection: non-distended GI Palp: Yes Soft to palpation, No Tenderness to palpation present (GI) and No Guarding due to palpation present (GI) Auscultation: normal bowel sounds : General: Yes bladder normal to palpation External Female Exam: normal external appearance Speculum Exam - Vagina: normal vaginal discharge and No vaginal bleeding Speculum Exam - Cervix: nontender Bimanual exam- vagina & uterus: bladder normal to palpation and No Cervical tenderness present OB/external & speculum: No vaginal bleeding Skin: General skin exam: no rashes or lesions noted Extrem: General: normal to inspection and no edema Psych: Mental Status: mental status grossly normal Affect: normal affect ACCOUNTING MANAGER CPA - PN: Obj Data Vital Signs Vital Signs: Vital Signs - 24 hr 03/16/21 08:52 03/16/21 11:04 03/16/21 11:15 Temperature 98.2 F 97.1 F L Pulse Rate 75 92 68 Respiratory Rate 18 18 12 Blood Pressure 124/70 127/64 128/62 Pulse Oximetry 100 100 100 03/16/21 11:30 03/16/21 11:45 03/16/21 12:04 Temperature Pulse Rate 59 L 63 69 Respiratory Rate 16 8 L 10 L Blood Pressure 134/65 132/63 131/72 Pulse Oximetry 99 99 98 03/16/21 12:15 03/16/21 12:30 03/16/21 16:00 Temperature 97.3 F L 98.8 F Pulse Rate 71 66 74 Respiratory Rate 11 L 16 18 Blood Pressure 125/68 122/72 106/61 Pulse Oximetry 98 100 100 03/16/21 19:25 03/17/21 05:00 Temperature 98.0 F 97.5 F L Pulse Rate 62 65 Respiratory Rate 16 16 Blood Pressure 99/56 L 101/59 L Pulse Oximetry Intake/Output Intake/Output: Intake & Output 03/14/21 03/15/21 03/16/21 03/17/21 23:59 23:59 23:59 23:59 Intake Total 800 700 Output Total 1915 525 Balance -1115 175 Meds/Results Medications: Active Medications Generic Name Dose Route Start Last Admin Trade Name Freq PRN Reason Stop Dose Admin Hydrocodone Bitart/Acetaminophen 1 tab 03/16/21 12:22 Hydrocodone/Acetaminophen (*Crx) 5-325 Mg Tablet PO Q3H PRN Pain Rated 5 or Less Hydrocodone Bitart/Acetaminophen 1 tab 03/16/21 12:22 03/17/21 05:00 Hydrocodone/Acetaminophen (*Crx) 10-325 Mg Tablet PO 1 tab Q3H PRN Administration Pain Rated 6 or Greater Ibuprofen 600 mg 03/16/21 12:22 03/17/21 01:47 Ibuprofen 600 Mg Tablet PO 600 mg Q6H PRN Administration Cramping Ketorolac Tromethamine 30 mg 03/16/21 12:22 03/16/21 12:49 Ketorolac 30 Mg/Ml Vial (*Bkc) IV PUSH 03/21/21 12:21 30 mg Q6H PRN Administration Pain Rated 4-6 Naloxone HCl 0.1 mg 03/16/21 12:22 Naloxone Hcl 0.4 Mg/Ml Vial IV PUSH Q2M PRN Respiratory rate less than 10 Ondansetron HCl 4 mg 03/16/21 12:22 Ondansetron Inj 4 Mg/2 Ml Vial IV PUSH Q6H PRN Nausea And Vomiting Senna/Docusate Sodium 2 tab 03/16/21 21:00 03/16/21 22:17 Senna/Docusate Sodium Tablet PO 2 tab
[2021-03-17 08:15] VITALS: BP 98/50; PULSE 55; RESP 16; TEMP 36.6; O2SAT 98
== END 2021-03-17 12:20 | disposition home or self-care (01) ==
LOC: ANHSURGERY 08:55 → ANHOB2 15:54
PROVIDERS: Visit Provider Student in an Organized Health Care Education/Training Program
PROC: (CPT 58571; principal; 2021-03-16 09:00)
DX: Z30.2 Encounter for sterilization (principal); N80.0 Endometriosis of uterus; N83.8 Other noninflammatory disorders of ovary, fallopian tube and broad ligament; N80.2 Endometriosis of fallopian tube; D25.1 Intramural leiomyoma of uterus; D64.9 Anemia, unspecified; R01.1 Cardiac murmur, unspecified
CPT/HCPCS: 58571; S2900; 36415; 80048; 85025; 86850; 86900; 86901; 88307; 99199; A9270; J0330; J0690; J1100; J1200; J1885; J2250; J2270; J2405; J3010; J7030; J7120

== ENCOUNTER 2022-01-23 15:55 | Outpatient (CLI) | payer OTHER, SELFPAY ==
--- NOTE | ~2022-01-23 | XR_ITS ---
EXAM: XR abdomen/kub 1V DATE: 01/23/2022 16:27 HISTORY: Lower abdominal pain, bloating x 1 mo; no bowel changes . COMPARISON: CT abdomen and pelvis 08/28/2016. FINDINGS: Nodular opacification in the left lung base, previously biopsied. Normal bowel gas pattern . No organomegaly. Multiple pelvic phleboliths. Degenerative change at the pubic symphysis, otherwise the bones and soft tissues normal for age. IMPRESSION: No radiographic evidence of obstruction or ileus. Osteitis pubis. Reviewed, dictated and finalized at location [facility]. [facility]
[2022-01-23 16:21] LABS: Hematocrit 41.5 % (37.0-47.0); Hemoglobin 13.7 g/dL (12.0-15.0); Mean Corpuscular Hemoglobin 29.5 pg (26-34); Mean Corpuscular Volume 89.4 fl (80-100); Mean Platelet Volume 10.1 fl (7.4-10.4); Platelet Count Result 291 k/mm3 (150-375); Red Blood Count 4.64 M/mm3 (4.2-5.4); White Blood Count 7.2 K/mm3 (4.5-10.0)
[2022-01-23 16:32] LABS: Alanine Aminotransferase 35 U/L (6-35); Albumin Level 4.9 g/dL (3.5-5.1); Alkaline Phosphatase 79 U/L (38-126); Anion Gap 6 mmol/L (8-16); Aspartate Amino Transferase 32 U/L (14-36); Bilirubin,Total 0.5 mg/dL (0.2-1.3); Blood Urea Nitrogen 12 mg/dL (7-17); CRP 1.3 mg/dL (<1.0); Calcium 9.3 mg/dL (8.4-10.2); Carbon Dioxide 29 mmol/L (22-30); Chloride 103 mmol/L (98-107); Estimated Glomerular Filt Rate > 60; Glucose 96 mg/dL (65-110); Potassium 3.9 mmol/L (3.4-5.0); Sodium 138 mmol/L (137-145)
[2022-01-23 16:34] LABS: Add Urine Microscopic? YES; Appearance Urine Slightly Cloudy (Clear); Bilirubin Urine Negative (Negative); Blood Urine Negative (Negative); Color Urine Light Yellow (Yellow); Glucose Urine UA Negative (Negative); Ketones Urine Negative (Negative); Leukocyte Esterase Ur Negative LEU/UL (Negative); Nitrate Urine Negative (Negative); Protein Urine Negative (Negative); Urobilinogen Urine 0.2 mg/dL (<2.0); pH Urine 7.5 (5.0-9.0)
[2022-01-23 16:46] LABS: Mucus Urine Rare /lpf; RBC Urine 0-2 /hpf (0-2); Squamous Epithelial Cell Urine Few /hpf (Few); WBC Urine 0-3 /hpf
[2022-01-23 16:47] LABS: Erythrocyte Sedimentation Rate 27 mm/hr (0-20)
[2022-01-23 17:33] LABS: Thyroid Stimulating Hormone Reflex 0.989 uIU/mL (0.465-4.68)
[2022-01-25 12:36] LABS: Tissue Transglutaminase IgA Ab <1.0 U/mL (<15.0)
[2022-01-28 08:50] LABS: Tissue Transglutaminase IgG Ab <1.0 U/mL (<15.0)
== END 2022-01-23 15:56 | disposition home or self-care (01) ==
PROVIDERS: PCP Obstetrics & Gynecology; Visit Provider Nurse Practitioner
DX: R10.30 Lower abdominal pain, unspecified (principal); R93.3 Abnormal findings on diagnostic imaging of other parts of digestive tract
CPT/HCPCS: 36415; 74018; 80053; 81001; 83516; 84443; 85027; 85652; 86140

== ENCOUNTER 2022-02-23 02:12 | Day surgery (SDC) | payer OTHER, SELFPAY ==
[2022-02-08 14:01] VITALS: BMI 29.3
--- NOTE | 2022-02-22 14:10 | WPDANESEPPF ---
Anes - Initial Pre Proc Eval Procedure: Operation Date: 02/23/22 07:30 Proposed Procedures p Colonoscopy - Nahid Figueroa MD Date/Time: 02/22/22 14:10 Surgeon: Nahid Figueroa MD Pre Op Diagnosis: abdominal pain Patient Data Age: 41 Gender: F Height: 1.57 m Weight: 72.8 kg Allergies Allergy/AdvReac Type Severity Reaction Status Date / Time No Known Allergies Allergy Verified 02/23/22 06:20 Home Medications Medication Instructions Recorded Confirmed Type No Home Medications 02/08/22 02/23/22 History Patient hx anesthesia problems: none Family hx anesthesia problems: none Results Review: All pre-operative results and documents have been reviewed as part of the pre-operative evaluation. 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 First Surgical History Surgical History (Updated 02/22/22 @ 14:10 by Giovanni Steele DO) History of hysterectomy Family History Family History Grandparent Acute myocardial infarction Heart disease Diabetes mellitus Hypertension Social History Social History Smoking status: Never smoker Second hand tobacco smoke exposure: No Alcohol intake: current Drinks per week: 1 Alcohol use details: monthly Substance use: never Substance use type: does not use Living arrangements: with family Gender identity (if verbalized by the patient): Female Spiritual care concerns: No Anes - Eval Final PreProcedure Day of Procedure 02/22/22 14:10 Patient weight: overweight Heart: regular rate and rhythm Lungs: clear to auscultation Airway: Mallampati scale class II Neurological: alert and oriented Last oral intake: >/= 8 hours ASA classification: II Emergent: no Anesthetic plan: proceed Anesthesia type and monitoring: general GIVS and standard monitoring Results Review: All pre-operative results and documents have been reviewed as part of the pre-operative evaluation. Informed Consent: The patient's anesthetic plan and its attendant risks and benefits were discussed with the patient/family/POA. Questions were solicited and answers provided to the satisfaction of the patient/family/POA.
[2022-02-23 06:21] VITALS: BP 120/79; PULSE 83; RESP 17; TEMP 36.3; O2SAT 100
[2022-02-23] MEDS: LACTATED RINGERS 1,000 ML 150 ML IV CONT (06:33)
--- NOTE | 2022-02-23 07:26 | PM.HPGS ---
History of Present Illness History of Present Illness Consent: Risks, benefits, and alternatives have been discussed and questions answered. Patient agrees to proceed with procedure. Chief complaint: abdominal pain Narrative: Lula Roldan is a 41 year old female with pelvic pressure, evaluated by executive assistant to general counsel. Never had colonoscopy. Review of Systems Constitutional: Constitutional: Denies headache(s) and Denies weakness Eyes: Eyes: Denies blurry vision ENT: Reports Normal hearing present, Denies headache(s) and Denies neck pain Cardiovascular: Cardiovascular: Denies chest pain and Denies dyspnea Respiratory: Respiratory: Denies dyspnea Gastrointestinal: Gastrointestinal: Reports no additional gastrointestinal complaints Genitourinary: Genitourinary: Denies dysuria Musculoskeletal: Musculoskeletal: Denies neck pain Integumentary/Breasts: Skin/Breast: Denies dry skin Neurologic: Reports Normal hearing present, Denies headache(s) and Denies weakness Psychiatric: Psychiatric: Denies anxiety Endocrine: Endocrine: Denies change in body appearance Hematologic/Lymphatic: Hematologic/Lymphatic: Denies easy bleeding Allergic/Immunologic: Allergic/Immunologic: Denies urticaria PMFSH Past Medical History Medical History (Updated 02/22/22 @ 14:10 by Giovanni Steele DO) Abdominal bloating Anemia Fibroid Heart murmur Hypoactive bowel sounds Lower abdominal pain Pelvic pressure in female 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 First Surgical History Surgical History (Updated 02/22/22 @ 14:10 by Giovanni Steele DO) History of hysterectomy Family History Family History Grandparent Acute myocardial infarction Heart disease Diabetes mellitus Hypertension Social History Social History Smoking status: Never smoker Second hand tobacco smoke exposure: No Alcohol intake: current Drinks per week: 1 Alcohol use details: monthly Substance use: never Substance use type: does not use Living arrangements: with family Gender identity (if verbalized by the patient): Female Spiritual care concerns: No Meds Home Medications and Allergies Home Medications Medication Instructions Recorded Confirmed Type No Home Medications 02/08/22 02/23/22 History Allergies Allergy/AdvReac Type Severity Reaction Status Date / Time No Known Allergies Allergy Verified 02/23/22 06:20 Vital Signs Vital Signs - 24 hr 02/23/22 06:21 Temperature 97.4 F L Pulse Rate 83 Respiratory Rate 17 Blood Pressure 120/79 Pulse Oximetry 100 Oxygen Delivery Room Air Exam Const: General: comfortable and no acute distress HENMT: Face/Nose/Sinus: Normal nares present Eyes: General: appearance normal, both eyes and all related structures Neck: Neck: no JVD Resp: Auscultation: clear to auscultation bilaterally Cardio: Rate: regular rate Rhythm: regular rhythm GI: Inspection: non-distended GI Palp: Yes Soft to palpation Skin: General skin exam: normal color Neuro: General: gait normal Speech: normal speech Extrem: General: normal to inspection Psych: Mental Status: mental status grossly normal Assessment and Plan Assessment and plan (1) Pelvic pressure in female: Code(s): R10.2 - Pelvic and perineal pain Status: Acute Assessment and Plan: evaluate with colonoscopy (2) Abdominal bloating: Code(s): R14.0 - Abdominal distension (gaseous) Status: Acute
[2022-02-23 07:42] VITALS: BP 105/58; PULSE 80; RESP 18; O2SAT 98
[2022-02-23 07:52] VITALS: BP 100/62; PULSE 77; RESP 17; O2SAT 100
[2022-02-23 08:02] VITALS: BP 107/61; PULSE 63; RESP 16; O2SAT 100
== END 2022-02-23 08:14 | disposition home or self-care (01) ==
PROVIDERS: Visit Provider Internal Medicine Gastroenterology
PROC: 0DJD8ZZ Inspection of Lower Intestinal Tract, Via Natural or Artificial Opening Endoscopic (ICD-10-PCS; CPT 45378; principal; 2022-02-23 07:30)
DX: R10.2 Pelvic and perineal pain (principal); R14.0 Abdominal distension (gaseous); K64.8 Other hemorrhoids
CPT/HCPCS: 45378; J2704; J7120

== ENCOUNTER 2022-04-12 15:00 | Outpatient (RCR) | payer OTHER, SELFPAY ==
--- NOTE | 2022-04-06 10:13 | PTOPEVAL1 ---
Assessment and note entered by Ashley Prasad DPT Evaluation Information Assessment Status Evaluation Subjective Information Pt reports she has had 3 children vaginally, May 2020 was her third which was the most difficult delivery. Reports persistent pain since then especially around her right hip. Reports a history of uterine fibroids and had a hysterectomy 1 year ago. Reports she has been noticing cramping that started this past September. Around the same time would also get numbness and tingling in her legs. Pt had x-rays and CT scan several months ago ( ordered by Dr. Thalia Cho) and was diagnosed with osteitis pubis. 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 Highest pain recently 6 /10 and lowest 1/10. Pain is anterior low abdomen which sometimes radiates outward to her hips, typically right is worse than let. Minimal back pain. Urinates 5-10 times a day and usually none at night. Has noticed urinary incontinence since her third child, 1-2 times a week on average with coughing/sneezing/lifting. Can hold urine 20 minutes but sometimes reports urgency. BM daily, no pain. No pain with urination. Has also recently had pain with sex, pap smear, pelvic exam. Prior level of function: patient was able to work without pain or limitation, able to be active and exercise. Also history of tube removal in 2017 for ectopic , 2006 LEEP procedure. Reported Pain Level Pain Score 3: Self Report Assessment PT Clinical Summary The patient is presenting to skilled therapy with a diagnosis of osteitis pubis and anterior abdominal/pelvic pain. She presents with decreased core and lower extremity strength, and pain with pelvic floor palpation. These impairments are contributing to her pain and difficulty with activities including standing at work. She will benefit from therapy to reduce pain and dysfunction. Plan of Care Interventions Electrical Stimulation,Hot Pack/Cold Pack,Manual Therapy,Neuro Re-education,Patient/Caregiver Education,Therapeutic Activities,Therapeutic Exercise,Self-Care/Home Management PT Services Indicated Yes Treatment Frequency and 1 time a week for 4 weeks Duration These treatments will address the objective and functional deficits as defined above. The patient will be advanced safely and appropriately in order for th
--- NOTE | 2022-04-20 08:34 | PCPTNOTE ---
Patient called and canceled due to illness
--- NOTE | 2022-04-27 08:16 | PCPTNOTE ---
Pt called and cancelled due to her children being sick
--- NOTE | 2022-05-04 10:30 | PCPTNOTE ---
Patient did not show for appointment 05/04/22. Called and left voicemail for patient.
--- NOTE | 2022-06-21 10:08 | PCPTNOTE ---
Patient has not attended since April. She will be discharged this date.
== END 2022-06-21 08:26 | disposition home or self-care (01) ==
LOC: ANHPT 15:00
PROVIDERS: Visit Provider Obstetrics & Gynecology
DX: M86.8X8 Other osteomyelitis, other site (principal)
CPT/HCPCS: 97112; 97162; 99199

== ENCOUNTER 2023-01-01 14:29 | Emergency (ER) | payer OTHER, SELFPAY ==
--- NOTE | 2023-01-01 14:45 | ED.EAR ---
HPI - Ear Problem General Chief complaint: Ear Stated complaint: lt earache Time Seen by Provider: 01/01/23 14:45 Source: patient Mode of arrival: ambulatory Limitations: no limitations History of Present Illness HPI Narrative: Sarah Beth is a 42-year-old female patient presenting to the clinic today with complaints of a left earache x3 weeks. She reports there is pain behind her ear- gradually gotten worse over the past 2 days and the pain is not radiating into her jaw and causing a headache. Tender to touch with swelling behind the left ear. States she has a lump sensation to the base of her left lateral tongue- feels as though there is something there when she is swallowing. No fever, chills, body aches, or fatigue. Related Data Home Medications Medication Instructions Recorded Confirmed No Home Medications 02/08/22 01/01/23 Allergies Allergy/AdvReac Type Severity Reaction Status Date / Time No Known Allergies Allergy Verified 01/01/23 14:46 Review of Systems Review of Systems: Pertinent positives per HPI. Patient denies any fever, chills, rash, visual changes, dizziness, cough, shortness of breath, chest pain, palpitations, nausea, vomiting, diarrhea, constipation, abdominal pain, or any urinary issues. 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 First Surgical History Surgical History History of hysterectomy Family History Family History Grandparent Acute myocardial infarction Heart disease Diabetes mellitus Hypertension Social History Social History Smoking status: Never smoker Second hand tobacco smoke exposure: No Alcohol intake: current Drinks per week: 1 Alcohol use details: monthly Substance use: never Substance use type: does not use Living arrangements: with family Gender identity (if verbalized by the patient): Female Spiritual care concerns: No Comments At the time of my signature, I reviewed and agree with the nursing past medical, surgical, social, and family history. There is no relevant family history pertinent to the patient complaint. Exam Narrative: General: Well-developed,overweight, in no apparent distress Head: Normocephalic, atraumatic Eyes: Pupils equally round and reactive to light bilaterally, EOM intact, sclera and conjunctive clear, no discharge, lids normal Ears: TMs intact and clear, ear canals clear, no drainage, grossly hearing normal. Mild swelling and tender to palpation over the left posterior auricle-over the mastoid bone, pain radiates into the left neck/jaw, no erythema noted. Nose: Nares patent, no discharge, no inflammation, no sinus tenderness. Mouth: Oral pharynx without lesions or masses, tongue without lesions or masses, good dentition, MMM. Neck: Supple, trachea midline, no enlargement of anterior or posterior cervical nodes, no thyroid masses or goiter palpable. Cardio: Regular rate and rhythm, s1 and s2 normal, no murmur appreciated. Resp: Clear to auscultation bilaterally, no rhonchi, rales, wheezing or rubs Course Course Emergency Course: Portions of this record may have been created with voice recognition software. Level of Care: Express Care Visit Vital Signs Vital signs: Vital signs reviewed Medical Decision Making MDM Narrative Medical decision making narrative: At the time of visit patient is resting comfortably on the exam table. Strep test was obtained and negative in the clinic today. Patient is non-toxic appearing- no fever, chills, body aches, or fatigue. No sign of
[2023-01-01 14:54] VITALS: BP 121/75; PULSE 77; RESP 18; TEMP 36.2; O2SAT 100
== END 2023-01-01 15:53 | disposition home or self-care (01) ==
PROVIDERS: Emergency Provider Nurse Practitioner Family; PCP Family Medicine Sports Medicine
DX: R59.0 Localized enlarged lymph nodes (principal); F45.8 Other somatoform disorders; H92.02 Otalgia, left ear; R51.9 Headache, unspecified
CPT/HCPCS: 87081; 87880; 99213; G0463

== ENCOUNTER 2023-01-12 11:04 | Outpatient (CLI) | payer OTHER, SELFPAY ==
--- NOTE | ~2023-01-12 | CT_ITS ---
EXAMINATION: CT brain wo con DATE: 01/12/2023 11:33 INDICATION: Acute air pain. TECHNIQUE: Computed tomography (CT) of the head was performed without intravenous contrast. The dose- length product was 605.33 mGy-cm. Automated exposure control and iterative reconstruction technique w ere employed. COMPARISON: None FINDINGS: Brain parenchymal volume is normal for age. Normal ovalle-white differentiation. No ventricul omegaly or midline shift. Basilar cisterns are patent. Paranasal sinuses and mastoids are pneumatized . No depressed skull fractures. IMPRESSION: 1. No acute intracranial abnormality. Reviewed, dictated and finalized at location A. [employer]
== END 2023-01-12 11:05 | disposition home or self-care (01) ==
LOC: ANHIMG 11:06
PROVIDERS: PCP Family Medicine Sports Medicine; Visit Provider Family Medicine Sports Medicine
DX: H92.02 Otalgia, left ear (principal)
CPT/HCPCS: 70450